=== PATIENT | male | born 1955 | race Caucasian/White ===

== ENCOUNTER → 2016-11-16 | Outpatient (CLI) | payer OTHER ==
[~2016-11-16] MED LIST: ALPR.5T; ALPR.5T PO; AMD200T; AMIT100T2 PO; AMT50T; ASP81CT PO; CLPD75T PO; CRV25T PO; CYCL10TA9 PO; DIGO125T PO; DILANTIN; FISH1CAP15 PO; HYDR-3714 PO; ISM30TCR; ISOS30TA3 PO; LISI40TA; LISI5TAB14; LOSA100T16 PO; LOSA100T7 PO; MTP25TSR; NIAC1TBM5; OMG1KC; OXYC10TA63 PO; PHEN-633 PO; PHN100C; PNT40TEC PO; PREVACID; ROSU10TA12 PO; SMV20T; SRTR100T PO
--- OUTSIDE RECORDS SUMMARY | 2016-11-16 10:31 | XMS REPORT | Continuity of Care Document ---
Author Author [facility] Organization [facility] Address Unknown Phone Unavailable Support Name Relationship Address Phone MARIEL BOLDEN MD Caregiver [address] [place] [address] TIFFANY HUANG MD Caregiver [address] [place] [address] MAGNO PRADO Next Of Kin [address] [place] [address] Insurance Providers Payer Name Policy Number Subscriber Name Relationship [facility] [id number] Justin Prado 18 Self / Same As Patient Advance Directives Directive Response Recorded Date/Time Advance Directives No 10/03/14 9:29am Health Care Power of Incident Commander No 10/03/14 9:29am Organ Donor No 10/03/14 9:29am Resuscitation Status Full Code 10/03/14 9:29am Problems No known problems or medical conditions. Medications Medication Dose Route Sig Days/Qty Instructions Order Date Discontinued Date Status Clopidogrel Bisulfate 75 Mg PO BEDTIME 05/09/07 Active Simvastatin 05/09/07 01/28/09 Discontinued Phenytoin Sodium 05/09/07 02/22/08 Discontinued Metoprolol Succinate 05/09/07 02/22/08 Discontinued Lisinopril 05/09/07 01/28/09 Discontinued Isosorbide Mononitrate 05/09/07 10/02/13 Discontinued Aspirin 81 Mg PO BEDTIME 05/09/07 10/03/14 Discontinued Amiodarone HCl 05/09/07 08/07/12 Discontinued Amitriptyline HCl 05/09/07 08/07/12 Discontinued Alprazolam 05/09/07 01/28/09 Discontinued [Dilantin] 02/22/08 01/28/09 Discontinued Carvedilol 25 Mg PO TWICE A DAY 02/22/08 Active Phenytoin Sodium 01/28/09 08/07/12 Discontinued Lisinopril 01/28/09 08/07/12 Discontinued [Prevacid 40MG] 01/28/09 08/07/12 Discontinued Sertraline HCl 100 Mg PO DAILY 01/28/09 Active Fish Oil 01/28/09 08/07/12 Discontinued Alprazolam 0.5 Mg PO TWICE A DAY 01/28/09 Active Niacin/Simvastatin 01/28/09 08/07/12 Discontinued Phenytoin Sodium 200 Mg PO TWICE A DAY TAKES 2 (100MG) CAPSULES TWICE DAILY 08/07/12 Active Amitriptyline HCl (Elavil) 100 Mg PO BEDTIME 08/07/12 Active Fish Oil/Dha/Epa 1,200 Mg PO TWICE A DAY 08/07/12 Active Rosuvastatin Calcium 10 Mg PO BEDTIME 08/07/12 Active Losartan Potassium 100 Mg PO DAILY 08/07/12 09/23/13 Discontinued Cyclobenzaprine HCl (Flexeril) 10 Mg PO THREE TIMES A DAY PRN MUSCLE SPASMS 08/07/12 Active Pantoprazole Sodium 40 Mg PO DAILY 08/07/12 Active Digoxin (Lanoxin) 125 Mcg PO DAILY 08/07/12 Active Losartan Potassium 100 Mg PO DAILY 09/23/13 Active Oxycodone Hcl 10 Mg PO TWICE A DAY PRN PAIN NEEDED FOR PAIN 10/03/14 Discontinued Isosorbide Mononitrate (Imdur) 30 Mg PO DAILY 10/02/13 Active Aspirin 81 Mg PO BEDTIME 10/03/14 Active Acetaminophen/Hydrocodone Bitart 1-2 Tab PO EVERY 6 HOURS PRN PAIN Active Social History Social History Problem Response Recorded Date/Time Recent Foreign Travel No 10/03/2014 9:31am Smoking Status Former Smoker 10/03/2014 9:29am Query Response Start Date Stop Date Smoking Status Former Smoker 10/03/1995 Hospital Discharge Instructions No hospital discharge instructions. Plan of Care No plan of care. Functional Status Query Response Date Recorded Comprehension Ability Understands Concepts October 04, 2014 9:43am Allergies, Adverse Reactions, Alerts Allergen Type Severity Reaction Status Last Updated Clindamycin Allergy Unknown Active 05/09/07 Immunizations Name Given Type Date of Pneumonia Vaccine 10/02/07 Historical Date of Influenza Vaccine 08/02/14 Historical Vital Signs Acute Vital Signs Vital Response Date/Time Temperature (Fahrenheit) 97.5 degrees F (97.6 - 99.5) Temperature (Calculated Celsius) 36.84633 degrees C (36.4 - 37.5) Temperature Source Tympanic Pulse Rate (adult) 68 bpm (60 - 90) Respiratory Rate 20 bpm (12 - 24) O2 Sat by Pulse Oximetry 97 % (88 - 100) Blood Pressure 110/69 mm Hg Pain Pain Intensity 0 Height (Feet) 5 feet Height (Inches) 7.00 inches Height (Calculated Centimeters) 170.363429 cm Weight (Pounds) 174 pounds Weight (Calculated Grams) 74124.073 gm Weight (Calculated Kilograms) 78.920886 kilograms Calculated BMI 27.25 Results Laboratory Results Test Name Result Units Flags Reference Collection Date/Time Result Date/ Time Comments White Blood Count 10.2 10^3/uL 4.3-11.0 10/03/2014 9:35am 10/03/2014 9: 45am Red Blood Count 4.75 10^6/uL 4.35-5.85 10/03/2014 9:35am 10/03/2014 9: 45am Hemoglobin 15.1 G/DL 13.3-17.7 10/03/2014 9:35am 10/03/2014 9:45am Hematocrit 44 % 40-54 10/03/2014 9:35am 10/03/2014 9:45am Mean Corpuscular Volume 92 FL 80-99 10/03/2014 9:35am 10/03/2014 9: 45am Mean Corpuscular Hemoglobin 32 PG 25-34 10/03/2014 9:35am 10/03/2014 9: 45am Mean Corpuscular Hemoglobin Concent 35 G/DL 32-36 10/03/2014 9:35am 09/2014 9:45am Red Cell Distribution Width 12.7 % 10.0-14.5 10/03/2014 9:35am 2013 9:45am Platelet Count 315 10^3/uL 130-400 10/03/2014 9:35am 10/03/2014 9:45am Mean Platelet Volume 8.5 FL 7.4-10.4 10/03/2014 9:35am 10/03/2014 9: 45am Neutrophils (%) (Auto) 63 % 42-75 10/03/2014 9:35am 10/03/2014 9:45am Lymphocytes (%) (Auto) 26 % 12-44 10/03/2014 9:35am 10/03/2014 9:45am Monocytes (%) (Auto) 9 % 0-12 10/03/2014 9:35am 10/03/2014 9:45am Eosinophils (%) (Auto) 2 % 0-10 10/03/2014 9:35am 10/03/2014 9:45am Basophils (%) (Auto) 1 % 0-10 10/03/2014 9:35am 10/03/2014 9:45am Neutrophils # (Auto) 6.4 X 10^3 1.8-7.8 10/03/2014 9:35am 10/03/2014 9: 45am Lymphocytes # (Auto) 2.7 X 10^3 1.0-4.0 10/03/2014 9:35am 10/03/2014 9: 45am Monocytes # (Auto) 0.9 X 10^3 0.0-1.0 10/03/2014 9:35am 10/03/2014 9: 45am Eosinophils # (Auto) 0.2 10^3/uL 0.0-0.3 10/03/2014 9:35am 10/03/2014 9 :45am Basophils # (Auto) 0.1 10^3/uL 0.0-0.1 10/03/2014 9:35am 10/03/2014 9: 45am Prothrombin Time 13.3 SEC 12.2-14.7 10/03/2014 9:35am 10/03/2014 9: 56am INR Comment 1.0 0.8-1.4 10/03/2014 9:35am 10/03/2014 9:56am INTERPRETIVE DATA SUGGESTED THERAPEUTIC RANGE FOR INR'S: VENOUS THROMBOSIS, PULMONARY EMBOLISM, OR PREVENTION OF SYSTEMIC EMBOLISM (EG. IN ATRIAL FIBRILLATION): 2.0 - 3.0 MECHANICAL PROSTHETIC HEART VALVES: 2.5 - 3.5* *NOTE: INR'S UP TO 4.5 MAY BE NECESSARY IN SELECTED GROUPS OF HIGH RISK PATIENTS. [employer] PH[employer]ANS CONSENSUS CONFERENCE ON ANTITHROMBOTIC THERAPY (2000). Activated Partial Thromboplast Time 36 SEC H 24-35 10/03/2014 1:30pm 09/2014 2:01pm Sodium Level 139 MMOL/L 135-145 10/03/2014 9:35am 10/03/2014 10:02am Potassium Level 4.1 MMOL/L 3.6-5.0 10/03/2014 9:35am 10/03/2014 10: 02am Chloride Level 107 MMOL/L 98-107 10/03/2014 9:35am 10/03/2014 10:02am Carbon Dioxide Level 22 MMOL/L 21-32 10/03/2014 9:35am 10/03/2014 10: 02am Blood Urea Nitrogen 12 MG/DL 7-18 10/03/2014 9:35am 10/03/2014 10:02am Creatinine 0.68 MG/DL 0.60-1.30 10/03/2014 9:35am 10/03/2014 10:02am BUN/Creatinine Ratio 18 10/03/2014 9:35am 10/03/2014 10:02am Estimat Glomerular Filtration Rate > 60 10/03/2014 9:35am 2013 10:02am GFR INTERPRETIVE DATA UNITS FOR ESTIMATED GFR (eGFR): mL/min/1.73 M2 REFERENCE RANGE FOR ESTIMATED GFR (eGFR) eGFR NORMAL eGFR >60 MODERATELY DECREASED eGFR 30-59 SEVERLY DECREASED eGFR 15-29 KIDNEY FAILURE <15 (OR DIALYSIS) Glucose Level 111 MG/DL H 70-105 10/03/2014 9:35am 10/03/2014 10:02am Calcium Level 9.9 MG/DL 8.5-10.1 10/03/2014 9:35am 10/03/2014 10:02am Total Bilirubin 0.3 MG/DL 0.1-1.0 10/03/2014 9:35am 10/03/2014 10:02am Alkaline Phosphatase 103 U/L 40-136 10/03/2014 9:35am 10/03/2014 10: 02am Aspartate Amino Transf (AST/SGOT) 14 U/L 5-34 10/03/2014 9:35am 2013 10:02am Alanine Aminotransferase (ALT/SGPT) 10 U/L 0-55 10/03/2014 9:35am 10/03 10:02am Total Protein 7.6 G/DL 6.4-8.2 10/03/2014 9:35am 10/03/2014 10:02am Albumin 4.6 G/DL H 3.2-4.5 10/03/2014 9:35am 10/03/2014 10:02am Triglycerides Level 172 MG/DL H <150 10/03/2014 9:35am 10/03/2014 10: 02am Cholesterol Level 155 MG/DL < 200 10/03/2014 9:35am 10/03/2014 10:02am HDL Cholesterol 45 MG/DL 40-60 10/03/2014 9:35am 10/03/2014 10:02am LDL Cholesterol Direct 52 MG/DL 1-129 10/03/2014 9:35am 10/03/2014 10: 02am VLDL Cholesterol 34 MG/DL 5-40 10/03/2014 9:35am 10/03/2014 10:02am Procedures Procedure Status Date Provider(s) Tracing only of electrocardiogram completed 10/03/14 TIFFANY HUANG MD Encounters Encounter Location Date/Time Departed [facility] 10/03/14 8:54am
--- NOTE | 2016-11-17 09:05 | ECHOCARDIOGRAPHY REPORT ---
PROCEDURE PHYSICIAN: TIFFANY HUANG DATE OF PROCEDURE: 11/16/2016 TWO DIMENSIONAL ECHOCARDIOGRAM REPORT PRIMARY PHYSICIAN: OTHER PHYSICIAN: REFERRING PHYSICIAN: Dr. Faria ORDERING PHYSICIAN: INDICATION FOR THE PROCEDURE: Congestive heart failure. MEASUREMENTS DERIVED VALUES LV DIAMETER (LAX) NORMALS NORMALS Diastolic 6.2 (3.6-5.2) Eject. Fract. 35 to 40% (60%+/-6%) Systolic (2.3-3.9) Diastolic Vol. % Shortening (0.22-0.42) Systolic Vol. Aortic Root IVS THICKNESS Diastolic 0.8 (0.6-1.1) LVPW THICKNESS Diastolic 0.8 (0.6-1.1) LA DIAMETER Systolic 3.3 (2.1-3.7) FINDINGS: 1. Technical quality is good. 2. The left ventricle is dilated with diffuse left ventricular hypokinesia more pronounced at the lateral wall. Systolic function is reduced. Estimated ejection fraction 35 to 40%. Improvement compared to the study of 2014. 3. The left atrium is mildly dilated. No clot or thrombus were seen within the left atrium. 4. The right atrium and right ventricle are prominent. No clot or thrombus were seen within the right side. 5. Mitral valve is normal in morphology with mild mitral regurgitation noted by color Doppler flow. No mitral valve prolapse. No mitral valve stenosis. 6. Aortic valve is trileaflet with normal opening and closing pattern. No significant aortic stenosis or regurgitation was seen. 7. Tricuspid valve is normal in morphology with mild tricuspid regurgitation noted by color Doppler flow. Doppler across tricuspid valve estimated pulmonary artery pressure of 16+ right atrial pressure. 8. Pulmonic valve is functioning normally. 9. No pericardial effusion. IN CONCLUSION: 1. Prominent left ventricle with diffuse left ventricular hypokinesia more pronounced at the lateral wall. Systolic function is reduced. Estimated ejection fraction 35 to 40%, improvement compared to the study of 2014. 2. Mildly dilated left atrium. 3. Mild mitral and tricuspid regurgitation. 4. Estimated pulmonary artery pressure of 25 mmHg. Job ID: [id number] Dictated Date: 11/16/2016 17:31:46 Condenser Setter Date: 11/17/2016 09:03:09 / arlene
== END ==
LOC: CARD 10:27
PROVIDERS: ATTEND Physician Assistant
DX: I11.0 Hypertensive heart disease with heart failure (principal); I50.22 Chronic systolic (congestive) heart failure; I25.10 Atherosclerotic heart disease of native coronary artery without angina pectoris
CPT/HCPCS: 93306

== ENCOUNTER → 2016-11-21 | Outpatient (CLI) | payer OTHER ==
[~2016-11-21] MED LIST changes: +CATHETER FLUSH 10 ML SYR IV PRN; +REGADENOSON 0.4 MG/5 ML SYR (LEXISCAN) IV ONE
--- OUTSIDE RECORDS SUMMARY | 2016-11-21 07:20 | XMS REPORT | Continuity of Care Document ---
Author Author [facility] Organization [facility] Address Unknown Phone Unavailable Support Name Relationship Address Phone MARIEL BOLDEN MD Caregiver [address] [place] [address] TIFFANY HUANG MD Caregiver [address] [place] [address] MAGNO PRADO Next Of Kin [address] [place] [address] Insurance Providers Payer Name Policy Number Subscriber Name Relationship [facility] [id number] Justin Prado 18 Self / Same As Patient Advance Directives Directive Response Recorded Date/Time Advance Directives No 10/03/14 9:29am Health Care Power of Drier Operator Head No 10/03/14 9:29am Organ Donor No 10/03/14 [...] F (97.6 - 99.5) Temperature (Calculated Celsius) 36.75092 degrees C (36.4 - 37.5) Temperature Source Tympanic Pulse Rate (adult) 68 bpm (60 - 90) Respiratory Rate 20 bpm (12 - 24) O2 Sat by Pulse Oximetry 97 % (88 - 100) Blood Pressure 110/69 mm Hg Pain Pain Intensity 0 Height (Feet) 5 feet Height (Inches) 7.00 inches Height (Calculated Centimeters) 170.494771 cm Weight (Pounds) 174 pounds Weight (Calculated Grams) 22884.073 gm Weight (Calculated Kilograms) 78.063998 kilograms Calculated BMI 27.25 Results Laboratory Results [...] SELECTED GROUPS OF HIGH RISK PATIENTS. [employer] CONSENSUS CONFERENCE ON [...] Location Date/Time Departed Surgical Day Care [facility] 10/03/14 8:54am
[2016-11-21 09:11] VITALS: BP 148/100
--- NOTE | 2016-11-22 09:39 | STRESS TEST ---
PROCEDURE PHYSICIAN: TIFFANY HUANG LEXISCAN MYOVIEW STRESS TEST REPORT DATE OF PROCEDURE: 11/21/2016 INDICATION FOR THE PROCEDURE: Coronary artery disease. Baseline heart rate is 75, baseline blood pressure: 148/100. Baseline EKG: Sinus rhythm with no ischemic changes. SUMMARY: The patient was injected with 10.51 mCi of technetium 99 Myoview and the resting images were obtained. Then the patient received 0.4 mg of Lexiscan followed by 33 mCi of technetium 99 Myoview. Throughout the test, there were no EKG changes. The resting and stress images were reviewed and compared in the short axis, horizontal long axis, and vertical long axis views. Review of the images showed fixed defect involving the mid to apical anterior wall, anterolateral wall and inferolateral wall, with mild johanny-infarct ischemia. SSS is 21, SDS 3, TID value 1.01. On the gated images, the left ventricle is dilated with diffuse left ventricular hypokinesia. Calculated ejection fraction 24%. CONCLUSION: 1. The patient tolerated Lexiscan well. 2. Total infarction of the mid to apical anterior wall, anterolateral wall and inferolateral wall with small area of johanny-infarct ischemia. 3. Dilated left ventricle with diffuse left ventricular hypokinesia. Calculated ejection fraction 24% Job ID: [id number] Dictated Date: 11/22/2016 08:03:04 Bronze Plater Date: 11/22/2016 09:36:35 / [email or web address]
== END ==
LOC: CARD 07:16
PROVIDERS: ATTEND Physician Assistant
DX: I50.22 Chronic systolic (congestive) heart failure (principal); I25.10 Atherosclerotic heart disease of native coronary artery without angina pectoris; I11.0 Hypertensive heart disease with heart failure
CPT/HCPCS: 78452; 93017

== ENCOUNTER 2017-04-19 06:39 | Day surgery (SDC) | payer OTHER ==
[2017-04-19] VITALS (13 sets, daily range): BP systolic 114–141; BP diastolic 65–97
[~2017-04-19] VITALS: Ht 170.2 cm; Wt 72.1 kg
[~2017-04-19 06:39] MED LIST changes: -CATHETER FLUSH 10 ML SYR IV PRN; -REGADENOSON 0.4 MG/5 ML SYR (LEXISCAN) IV ONE
--- OUTSIDE RECORDS SUMMARY | 2017-04-19 06:42 | XMS REPORT | Continuity of Care Document ---
Author Author [facility] Organization [facility] Address Unknown Phone Unavailable Allergies Active Description Code Type Severity Reaction Onset Reported/Identified Relationship to Patient Clinical Status Yes clindamycin [id number] Drug Allergy Unknown N/A 05/09/2007 Medications Problems Date Dx Coded Attending Type Code Diagnosis Diagnosed By 02/24/2010 Ot 272.4 02/24/2010 Ot 401.9 02/24/2010 Ot 412 02/24/2010 Ot 414.00 02/24/2010 Ot 414.8 02/24/2010 Ot 428.0 02/24/2010 Ot 996.72 02/24/2010 Ot V45.82 10/03/2013 TIFFANY HUANG MD Ot 272.4 10/03/2013 TIFFANY HUANG MD Ot 401.9 10/03/2013 TIFFANY HUANG MD Ot 414.01 10/03/2013 TIFFANY HUANG MD Ot 414.8 10/03/2013 TIFFANY HUANG MD Ot 428.0 10/03/2013 TIFFANY HUANG MD Ot 428.22 10/03/2013 TIFFANY HUANG MD Ot 794.30 10/03/2013 TIFFANY HUANG MD Ot V45.82 10/04/2014 TIFFANY HUANG MD Ot 272.4 10/04/2014 TIFFANY HUANG MD Ot 401.9 10/04/2014 TIFFANY HUANG MD Ot 414.01 10/04/2014 TIFFANY HUANG MD Ot 414.2 10/04/2014 TIFFANY HUANG MD Ot 414.8 10/04/2014 TIFFANY HUANG MD Ot 427.1 10/04/2014 TIFFANY HUANG MD Ot 428.0 10/04/2014 TIFFANY HUANG MD Ot 428.22 10/04/2014 TIFFANY HUANG MD Ot V45.02 10/04/2014 TIFFANY HUANG MD Ot V45.82 10/04/2014 REINA ANDER, TIFFANY Drake Ot V58.69 06/17/2015 Ot 397.0 06/17/2015 Ot 410.90 06/17/2015 Ot 414.01 06/17/2015 Ot 424.0 06/17/2015 Ot 429.3 06/17/2015 Ot 272.4 06/17/2015 Ot 401.9 06/17/2015 Ot 412 06/17/2015 Ot 414.00 06/17/2015 Ot 414.00 06/17/2015 Ot 428.0 06/17/2015 Ot 786.50 06/17/2015 Ot 397.0 06/17/2015 Ot 414.00 06/17/2015 Ot 424.0 06/17/2015 Ot 428.0 06/17/2015 Ot 786.50 06/17/2015 Ot 397.0 06/17/2015 Ot 414.00 06/17/2015 Ot 424.0 06/17/2015 Ot 428.0 06/17/2015 Ot 414.00 06/17/2015 Ot 428.0 06/17/2015 REINA ANDRE, TIFFANY Drake Ot 272.4 06/17/2015 REINA ANDRE, TIFFANY Drake Ot 397.0 06/17/2015 REINA ANDRE, TIFFANY Drake Ot 401.9 06/17/2015 REINA ANDRE, TIFFANY Drake Ot 414.00 06/17/2015 REINA ANDRE, TIFFANY Drake Ot 424.0 06/17/2015 REINA ANDRE, TIFFANY Drake Ot 427.0 06/17/2015 REINA ANDRE, TIFFANY Drake Ot 428.0 06/17/2015 REINA ANDRE, TIFFANY Drake Ot 272.4 06/17/2015 REINA ANDRE, TIFFANY Drake Ot 401.9 06/17/2015 REINA ANDRE, TIFFANY Drake Ot 414.00 06/17/2015 REINA ANDRE, TIFFANY Drake Ot 427.0 06/17/2015 REINA ANDRE, TIFFANY Drake Ot 428.0 06/17/2015 REINA ANDRE, TIFFANY Drake Ot 272.4 06/17/2015 REINA ANDRE, TIFFANY Drake Ot 397.0 06/17/2015 REINA ANDRE, TIFFANY Drake Ot 401.9 06/17/2015 REINA ANDRE, TIFFANY Drake Ot 414.00 06/17/2015 REINA ANDRE, TIFFANY Drake Ot 424.0 06/17/2015 TIFFANY HUANG MD Ot 428.0 07/01/2015 YOLI CASTILLO Ot 272.4 07/01/2015 YOLI CASTILLO Ot 401.9 07/01/2015 YOLI CASTILLO Ot 414.00 07/01/2015 YOLI CASTILLO Ot 428.0 11/16/2016 YOLI CASITLLO Ot I11.0 HYPERTENSIVE HEART DISEASE WITH HEART FA 11/16/2016 YOLI CASTILLO Ot I25.10 ATHSCL HEART DISEASE OF [place] CORONARY 11/16/2016 YOLI CASTILLO Ot I50.22 CHRONIC SYSTOLIC (CONGESTIVE) HEART FAIL 11/18/2016 YOLI CASTILLO Ot I11.0 HYPERTENSIVE HEART DISEASE WITH HEART FA 11/18/2016 YOLI CASTILLO Ot I25.10 ATHSCL HEART DISEASE OF [place] CORONARY 11/18/2016 YOLI CASTILLO Ot I50.22 CHRONIC SYSTOLIC (CONGESTIVE) HEART FAIL 11/22/2016 YOLI CASTILLO Ot I11.0 HYPERTENSIVE HEART DISEASE WITH HEART FA 11/22/2016 YOLI CASTILLO Ot I25.10 ATHSCL HEART DISEASE OF [place] CORONARY 11/22/2016 YOLI CASTILLO Ot I50.22 CHRONIC SYSTOLIC (CONGESTIVE) HEART FAIL Procedures Results Encounters ACCT No. Visit Date/Time Discharge Status Pt. Type Provider Facility Loc./Unit Complaint [id number] 06/17/2015 10:54:00 2014 23:59:59 CLS Outpatient YOLI CASTILLO [facility] CARD [id number] 10/03/2014 08:54:00 2013 11:15:00 DIS Outpatient TIFFANY HUANG MD [facility] CATH [id number] 07/17/2014 09:33:00 2013 23:59:59 CLS Outpatient TIFFANY HUANG MD [facility] CARD [id number] 10/02/2013 08:05:00 2012 10:00:00 DIS Outpatient TIFFANY HUANG MD [facility] [id number] 09/24/2013 10:27:00 2012 23:59:59 CLS Outpatient TIFFANY HUANG MD [facility] RAD [id number] 09/23/2013 13:54:00 2012 23:59:59 CLS Outpatient TIFFANY HUANG MD [facility] [id number] 04/19/2017 09:00:00 PEN Preadmit TIFFANY HUANG MD [facility] NANCY,CHF [id number] 11/21/2016 07:16:00 ACT Outpatient YOLI HERNANDEZ [facility] CARD CHRONIC SYSTOLIC CONGESTIVE HEART FAILURE [id number] 11/16/2016 10:27:00 ACT Outpatient YOLI HERNANDEZ [facility] CARD CHRONIC SYSTOLIC HEART FAILURE [id number] 06/17/2015 10:54:00 Document Registration [id number] 06/17/2015 10:54:00 Document Registration [id number] 06/17/2015 10:54:00 Document Registration [id number] 08/07/2012 10:50:00 Document Registration [id number] 06/01/2011 07:30:00 Document Registration [id number] 05/27/2011 08:22:00 Document Registration [id number] 02/24/2010 08:09:00 Document Registration [id number] 02/10/2010 08:41:00 Document Registration
[2017-04-19] MEDS ORDERED: HEParin (CATH LAB) 1,000 ML IV ONE (06:51)
[2017-04-19] MEDS ORDERED: NS IV 1000 ML 1,000 ML ONE (06:51)
[2017-04-19] MEDS ORDERED: ceFAZolin 1,000 MG (ANCEF) VIAL ONE (06:51)
[2017-04-19] MEDS ORDERED: BACITRACIN INJECTION 50,000 UNIT, SODIUM CHLORIDE 0.9% IRRIGATIO 500 ML IR STA ×2 (06:52)
[2017-04-19] MEDS ORDERED: NS IV 1000 ML 1,000 ML IV SCH ×2 (07:15→09:34)
[2017-04-19] MEDS ORDERED: NS (IVPB) 50 ML ONE (07:20)
[2017-04-19 07:27] LABS: MEAN PLATELET VOLUME 8.8 FL (7.4-10.4); RED BLOOD COUNT 4.55 10^6/uL (4.35-5.85); RED CELL DISTRIBUTION WIDTH 12.8 % (10.0-14.5); WHITE BLOOD COUNT 8.9 10^3/uL (4.3-11.0)
[2017-04-19 07:27] LABS: BILIRUBIN,URINE NEGATIVE (NEGATIVE); KETONES,URINE NEGATIVE (NEGATIVE); LEUKOCYTE ESTERASE ,URINE 2+ (NEGATIVE); NITRITE,URINE NEGATIVE (NEGATIVE); PH,URINE 7 (5-9); PROTEIN,URINE NEGATIVE (NEGATIVE); UROBILINOGEN,URINE NORMAL (NORMAL)
[2017-04-19 07:31] LABS: PROTHROMBIN TIME PATIENT 13.2 SEC (12.2-14.7)
[2017-04-19 07:36] LABS: SQUAMOUS EPITHELIAL CELL,UR RARE /HPF; WBC,URINE 0-2 /HPF
[2017-04-19] MEDS ORDERED: SIMV40TA4 PO (07:40)
[2017-04-19] MEDS ORDERED: PANT40TA3 PO (07:40)
[2017-04-19 07:44] LABS: ALANINE AMINOTRANSFERASE 15 U/L (0-55); ALBUMIN 4.4 GM/DL (3.2-4.5); ANION GAP 9 MMOL/L (5-14); ASPARTATE AMINO TRANSFERASE 17 U/L (5-34); BILIRUBIN,TOTAL 0.2 MG/DL (0.1-1.0); BLOOD UREA NITROGEN 10 MG/DL (7-18); BUN/CREATININE RATIO 13; CALCIUM 9.6 MG/DL (8.5-10.1); CARBON DIOXIDE 28 MMOL/L (21-32); CHLORIDE 103 MMOL/L (98-107); CHOLESTEROL 167 MG/DL (< 200); CREATININE SERUM 0.77 MG/DL (0.60-1.30); DIRECT LDL 54 MG/DL (1-129); GFR ESTIMATED > 60; GLUCOSE 121 MG/DL (70-105); POTASSIUM 4.2 MMOL/L (3.6-5.0); SODIUM 140 MMOL/L (135-145); TOTAL PROTEIN 7.5 GM/DL (6.4-8.2); TRIGLYCERIDES 244 MG/DL (<150); VLDL CHOLESTEROL 49 MG/DL (5-40)
--- NOTE | 2017-04-19 07:45 | Diagnostic Imaging Report ---
INDICATION: Preoperative chest. No complaints. ICD generator change. FINDINGS: Portable view of the chest demonstrates heart size and vascularity to be normal. Lungs are clear. There are no pleural effusions. The ICD appears to be unchanged from the previous exam. IMPRESSION: There are no acute findings. Dictated by: Dictated on workstation # [id number]
[2017-04-19] MEDS ORDERED: MIDAZOLAM 5 MG/5 ML (VERSED) VIAL ONE ×2 (07:59→08:39)
[2017-04-19] MEDS ORDERED: fentaNYL INJECTION 100 MCG/2 ML AMP ONE ×2 (07:59→08:39)
--- NOTE | 2017-04-19 08:00 | Cardiac Procedure Note-CS/ASA ---
Pre-Procedure Note Pre-Op Procedure Note H&P Reviewed The H&P was reviewed, patient examined and no changes noted. Date H&P Reviewed: Apr 19, 2017 Time H&P Reviewed: 08:00 Conscious Sedation Pre-Proced Time Reviewed: 08:00 ASA Class: 3 Airway Mallampati Classification: ([place] appropriate class) I. II. III, IV Lungs Heart ASA score ASA 1: a normal healthy patient ASA 2: a patient with a mild systemic disease (mid diabetes, controlled hypertension, obesity x ASA 3: a patient with a severe systemic disease that limits activity (angina , COPD, prior Myocardial infarction) ASA 4: a patient with an incapacitating disease that is a constant threat to life (CHF, renal failure) ASA 5: a moribund patient not expected to survive 24 hrs. (ruptured aneurysm) ASA 6: a declared brain patient whose organs are being harvested. For emergent operations, add the letter E after the classification Grade 3 Sedation Plan: Analgesia, Amnesia, Plan communicated to team members, Discussed options with patient/fam, Discussed risks with patient/fam Note The patient is an appropriate candidate to undergo the planned procedure, sedation, and anesthesia. The patient immediately re-assessed prior to indication. TIFFANY HUANG MD Apr 19, 2017 08:00
[2017-04-19] MEDS ORDERED: diphenhydrAMINE 50 MG/ML INJ (BENADRYL) ONE (08:39)
[2017-04-19] MEDS ORDERED: NEO/POLY/BAC (NEOSPORIN) OINT 15 GM TUBE ONE (09:03)
--- NOTE | 2017-04-19 09:42 | Cardiology Post Procedure Note ---
Post-Procedure Note Physician (s)/Hand Glass Cutter (s) Physician TIFFANY HUANG MD Pre-Procedure Diagnosis Pre-Procedure Diagnosis: CHF Post-Procedure Note Procedure Start Date: Apr 19, 2017 Procedure Start Time: 08:30 Name of Procedure: Dual Chamber Generator Replacement Findings/Procedure Note patient was placed on the cardiac catheterization laboratory, skin was prepped in sterile fashion, conscious sedation achieved, local anesthesia applied, skin pocket was exposed, lead were and released and evaluated. Then I removed the dual-chamber ICD device, and new device was connected to the leads I used Medtronic device with EVERA XT, model number [id number], serial number [id number] , the skin pocket was irrigated with antibiotic solution and then the dual- chamber ICD device was placed in the pocket and the pocket was closed, testing was made and good sensing and capture activity with the right atrial and right ventricular leads. No complications noted. No contrast was used. No radiation Anesthesia Type: Conscious Sedation Estimated blood loss (mL): 20 Contrast Amount: 0 Post-Procedure Diagnosis Post-operative diagnosis: CHF Ventricular Tachycardia CAD HTN TIFFANY HUANG MD Apr 19, 2017 09:42
[2017-04-19] MEDS ORDERED: PATIENT MAY USE OWN MEDS, ALL PO SCH (09:45)
[2017-04-19] MEDS ORDERED: CYCLOBENZAPRINE 10 MG (FLEXERIL) TAB PO PRN (09:45)
[2017-04-19] MEDS: ceFAZolin INJECTION 1,000 MG in NS (IVPB) 50 ML IV SCH ×2 (14:48→22:20)
[2017-04-19] MEDS: HYDROcodone/APAP 5 MG/325 MG (LORTAB) TAB PO PRN ×2 (16:47→23:00)
[2017-04-19] MEDS: OMEGA 3 (FISH OIL) 1000 MG CAP PO SCH (16:48)
[2017-04-19] MEDS: ALPRAZolam 0.5 MG (XANAX) TAB PO SCH (20:54)
[2017-04-19] MEDS ORDERED: AMITRIPTYLINE 100 MG TAB PO SCH (21:00)
[2017-04-19] MEDS ORDERED: CARVEDILOL 25 MG TAB PO SCH (21:00)
[2017-04-19] MEDS ORDERED: ASPIRIN 81 MG CHEW (CHILDREN'S ASA) PO SCH (21:00)
[2017-04-19] MEDS ORDERED: PANTOPRAZOLE 40 MG (PROTONIX) TAB PO SCH (21:00)
[2017-04-19] MEDS ORDERED: SIMvastatin 40 MG (ZOCOR) TAB PO SCH (21:00)
[2017-04-19] MEDS ORDERED: CLOPIDOGREL 75 MG (PLAVIX) TABLET PO SCH (21:00)
[2017-04-19] MEDS ORDERED: PHENYTOIN 100 MG (DILANTIN) CAP PO SCH (21:00)
[2017-04-20] VITALS: BP 118/72
[2017-04-20 04:00] VITALS: BP 122/68
[2017-04-20 04:05] LABS: MEAN PLATELET VOLUME 8.8 FL (7.4-10.4); RED BLOOD COUNT 4.44 10^6/uL (4.35-5.85); RED CELL DISTRIBUTION WIDTH 12.8 % (10.0-14.5); WHITE BLOOD COUNT 10.8 10^3/uL (4.3-11.0)
[2017-04-20 04:24] LABS: ALANINE AMINOTRANSFERASE 12 U/L (0-55); ALBUMIN 4.1 GM/DL (3.2-4.5); ANION GAP 12 MMOL/L (5-14); ASPARTATE AMINO TRANSFERASE 16 U/L (5-34); BILIRUBIN,TOTAL 0.3 MG/DL (0.1-1.0); BLOOD UREA NITROGEN 10 MG/DL (7-18); BUN/CREATININE RATIO 15; CALCIUM 9.1 MG/DL (8.5-10.1); CARBON DIOXIDE 19 MMOL/L (21-32); CHLORIDE 107 MMOL/L (98-107); CREATININE SERUM 0.66 MG/DL (0.60-1.30); GFR ESTIMATED > 60; GLUCOSE 96 MG/DL (70-105); POTASSIUM 4.2 MMOL/L (3.6-5.0); SODIUM 138 MMOL/L (135-145); TOTAL PROTEIN 6.8 GM/DL (6.4-8.2)
[2017-04-20] MEDS: ceFAZolin INJECTION 1,000 MG in NS (IVPB) 50 ML IV SCH (06:17)
[2017-04-20] MEDS ORDERED: ISOSORBIDE MONONITRATE 30 MG (IMDUR) TAB PO SCH (06:30)
[2017-04-20] MEDS: OMEGA 3 (FISH OIL) 1000 MG CAP PO SCH (07:42)
[2017-04-20] MEDS: ALPRAZolam 0.5 MG (XANAX) TAB PO SCH (07:50)
[2017-04-20 08:08] VITALS: BP 128/85
--- NOTE | 2017-04-20 08:09 | Short Stay Summary ---
History of Present Illness History of Present Illness Reason for visit/HPI 62 years old gentleman with history of ventricular tachycardia, has history of dual-chamber ICD, reached elective replacement indicator, scheduled for generator replacement. Date of Admission April 19, 2017 Date of Discharge April 20, 2017 Time Seen by Provider: 08:06 Attending Physician Tiffany Merino MD Admitting Physician John Faria MD Consult Allergies and Home Medications Allergies Coded Allergies: Clindamycin (Verified Allergy, Unknown, 05/09/07) Home Medications Alprazolam 0.5 Mg Tab, 0.5 MG PO BID, (Reported) Amitriptyline Hcl 100 Mg Tablet, 100 MG PO HS, (Reported) Aspirin 81 Mg Chew, 81 MG PO HS, (Reported) Carvedilol 25 Mg Tablet, 25 MG PO BID, (Reported) Clopidogrel 75 Mg Tablet, 75 MG PO HS, (Reported) Cyclobenzaprine Hcl 10 Mg Tablet, 10 MG PO TID PRN for MUSCLE SPASMS, (Reported) NEEDED FOR MUSCLE SPASMS Digoxin 125 Mcg Tablet, 125 MCG PO DAILY, (Reported) Fish Oil/Dha/Epa 1 Each Capsule, 1,200 MG PO BID, (Reported) Hydrocodone Bit/Acetaminophen 1 Each Tablet, 1-2 TAB PO Q6H PRN for PAIN, ( Reported) MAY TAKE 1-2 (5/325MG) TABLETS Isosorbide Mononitrate 30 Mg Tab.sr.24h, 30 MG PO DAILY, (Reported) Losartan Potassium 100 Mg Tablet, 100 MG PO DAILY, (Reported) Pantoprazole Sodium 40 Mg Tablet.dr, 40 MG PO HS, (Reported) Phenytoin Sodium 100 Mg Cap, 200 MG PO BID, (Reported) TAKES 2 (100MG) CAPSULES TWICE DAILY Sertraline Hcl 100 Mg Tab, 100 MG PO DAILY, (Reported) Simvastatin 40 Mg Tablet, 40 MG PO HS, (Reported) Past Unnyjlg-Xhbejp-Jvmgru Hx Patient Social History Marrital Status: Smoking Status: Former Smoker Type Used: Cigarettes Recent Foreign Travel: No Contact w/other who traveled: No Recent Infectious Disease Expo: No Immunizations Up To Date Date of Pneumonia Vaccine: Oct 02, 2007 Date of Influenza Vaccine: Aug 02, 2014 Surgeries HX Surgeries: Yes (HEMMORRHOIDECTOMY,X2 HERNIAS,LEFT ROTATOR CUFF) Surgeries: Coronary Stent, Pacemaker Respiratory Hx Respiratory Disorders: No Cardiovascular Hx Cardiovascular Disorders: Yes (cad chf) Neurological Hx Neurological Disorders: Yes Neurological Disorders: Seizure Disorder Reproductive System Hx Reproductive Disorders: No Genitourinary Hx Genitourinary Disorders: No Gastrointestinal Hx Gastrointestinal Disorders: Yes (gerd) Gastrointestinal Disorders: Gastroesophageal Reflux, Hemorrhoids Musculoskeletal Hx Musculoskeletal Disorders: Yes (LOWER LUMBAR CRUSHED VERTEBRAE) Endocrine Hx Endocrine Disorders: No HEENT HX ENT Disorders: No Cancer Hx Cancer: No Psychosocial Hx Psychiatric Problems: Yes Blood Transfusions Hx Blood Disorders: No Constitutional: see HPI EENTM: see HPI Respiratory: see HPI Cardiovascular: see HPI Gastrointestinal: see HPI Genitourinary: see HPI Musculoskeletal: see HPI Skin: see HPI Psychiatric/Neurological: No Symptoms Reported, See HPI Physical Exam Vital Signs Vital Sign - Last 12Hours 04/19/17 07:06 Temp 96.5 Pulse 73 Resp 14 B/P (MAP) 141/97 Pulse Ox 99 O2 Delivery Room Air Capillary Refill : General Appearance: No Apparent Distress, WD/WN Eyes: Bilateral Eye EOMI, Bilateral Eye Normal Inspection, Bilateral Eye PERRL HEENT: PERRL/EOMI, TMs Normal, Normal ENT Inspection, Pharynx Normal Neck: Full Range of Motion, Normal Inspection, Non Tender, Supple, Carotid Bruit Respiratory: Chest Non Tender, Lungs Clear, Normal Breath Sounds, No Accessory Muscle Use, No Respiratory Distress Cardiovascular: Regular Rate, Rhythm, No Edema, No Gallop, No JVD, No Murmur, Normal Peripheral Pulses Gastrointestinal: Normal Bowel Sounds, No Organomegaly, No Pulsatile Mass, Non Tender, Soft Back: Normal Inspection, No CVA Tenderness, No Vertebral Tenderness Extremity: Normal Capillary Refill, Normal Inspection, Normal Range of Motion, Non Tender, No Calf Tenderness, No Pedal Edema Neurologic/Psychiatric: Alert, Oriented x3, No Motor/Sensory Deficits, Normal Mood/Affect Skin: Normal Color, Warm/Dry Lymphatic: No Adenopathy Short Stay Diagnosis Discharge Diagnosis-Short Stay Admission Diagnosis: ventricular tachycardia Permanent pacemaker/ICD dual-chamber Coronary artery disease Congestive heart failure, chronic compensated left ventricular systolic dysfunction, ischemic cardiomyopathy Hypertension Hyperlipidemia Final Discharge Diagnosis: ventricular tachycardia Permanent pacemaker/ICD dual-chamber Coronary artery disease Congestive heart failure, chronic compensated left ventricular systolic dysfunction, ischemic cardiomyopathy Hypertension Hyperlipidemia Conclusion Labs Laboratory Tests 04/20/17 03:33: White Blood Count 10.8, Red Blood Count 4.44, Hemoglobin 13.8, Hematocrit 41, Mean Corpuscular Volume 91, Mean Corpuscular Hemoglobin 31, Mean Corpuscular Hemoglobin Concent 34, Red Cell Distribution Width 12.8, Platelet Count 270, Mean Platelet Volume 8.8, Sodium Level 138, Potassium Level 4.2, Chloride Level 107, Carbon Dioxide Level 19L, Anion Gap 12, Blood Urea Nitrogen 10, Creatinine 0.66, Estimat Glomerular Filtration Rate > 60, BUN/Creatinine Ratio 15, Glucose Level 96, Calcium Level 9.1, Total Bilirubin 0.3, Aspartate Amino Transf (AST/ SGOT) 16, Alanine Aminotransferase (ALT/SGPT) 12, Alkaline Phosphatase 77, Total Protein 6.8, Albumin 4.1 Conclusion/Plan patient underwent dual-chamber pacemaker generator replacement, had a Medtronic device placed without any complication. Wound is healing well, recovered well. Planning to discharge home. TIFFANY MERINO MD Apr 20, 2017 08:08
[2017-04-20] MEDS ORDERED: CEFU500T63 PO (08:10)
[2017-04-20] MEDS ORDERED: DIGOXIN 0.125 MG (LANOXIN) TAB PO SCH (09:00)
[2017-04-20] MEDS ORDERED: LOSARTAN 100 MG TAB PO SCH (09:00)
[2017-04-20] MEDS ORDERED: SERTRALINE 100 MG (ZOLOFT) TAB PO SCH (09:00)
--- NOTE | 2017-04-20 12:44 | ICD Generator Change ---
ICD Generator Change Physician (s)/Medical Technical Writer (s) Physician TIFFANY HUANG MD Pre-Procedure Diagnosis Pre-Procedure Diagnosis: CHF Post-Procedure Note Name of Procedure: Dual Chamber Generator Replacement Findings/Procedure Note Post-Procedure Note Physician (s)/Medical Technical Writer (s) Physician TIFFANY HUANG MD patient was placed on the cardiac catheterization laboratory, skin was prepped in sterile fashion, conscious sedation achieved, local anesthesia applied, skin pocket was exposed, lead were and released and evaluated. Then I removed the dual-chamber ICD device, and new device was connected to the leads I used Medtronic device with EVERA XT, model number [id number], serial number [id number] , the skin pocket was irrigated with antibiotic solution and then the dual- chamber ICD device was placed in the pocket and the pocket was closed, testing was made and good sensing and capture activity with the right atrial and right ventricular leads. No complications noted. No contrast was used. No radiation Conclusion Successful ICD generator replacement without complication Anesthesia Type: Conscious Sedation Estimated blood loss (mL): 20 Contrast Amount: 0 Post-Procedure Diagnosis Post-operative diagnosis: CHF Ventricular Tachycardia CAD HTN TIFFANY UHANG MD Apr 20, 2017 12:44
== END 2017-04-20 09:35 ==
LOC: CATH 06:39 → ICU 10:05 → CATH 04-20 09:35
PROVIDERS: ATTEND Internal Medicine Cardiovascular Disease
DX: Z45.010 Encounter for checking and testing of cardiac pacemaker pulse generator [battery] (principal); I47.2 Ventricular tachycardia; I25.10 Atherosclerotic heart disease of native coronary artery without angina pectoris; I10 Essential (primary) hypertension; I50.22 Chronic systolic (congestive) heart failure; I25.5 Ischemic cardiomyopathy; E78.2 Mixed hyperlipidemia; G40.909 Epilepsy, unspecified, not intractable, without status epilepticus; Z95.5 Presence of coronary angioplasty implant and graft; Z79.899 Other long term (current) drug therapy
CPT/HCPCS: 33263; 36415; 71010; 80053; 80061; 81000; 85027; 85610; 85730; 87081; 93005

== ENCOUNTER → 2018-01-18 | Outpatient (CLI) | payer OTHER ==
[~2018-01-18] MED LIST changes: +CEFU500T63 PO; +PANT40TA3 PO; +SIMV40TA4 PO
== END ==
LOC: CARD 08:39
PROVIDERS: ATTEND Internal Medicine Cardiovascular Disease
DX: I25.10 Atherosclerotic heart disease of native coronary artery without angina pectoris (principal); I11.0 Hypertensive heart disease with heart failure; I50.22 Chronic systolic (congestive) heart failure; R07.9 Chest pain, unspecified; E78.2 Mixed hyperlipidemia; R06.00 Dyspnea, unspecified; I34.0 Nonrheumatic mitral (valve) insufficiency
CPT/HCPCS: 93306

== ENCOUNTER → 2019-03-28 | Outpatient (CLI) | payer OTHER | LOC: CARD 12:12 | PROVIDERS: ATTEND Internal Medicine Cardiovascular Disease | DX: I25.10 Atherosclerotic heart disease of native coronary artery without angina pectoris (principal); I50.22 Chronic systolic (congestive) heart failure; R06.09 Other forms of dyspnea; E78.2 Mixed hyperlipidemia; I47.1 Supraventricular tachycardia; I47.2 Ventricular tachycardia; I34.0 Nonrheumatic mitral (valve) insufficiency | CPT/HCPCS: 93306 ==

== ENCOUNTER → 2020-07-14 | Outpatient (CLI) | payer OTHER ==
[~2020-07-14] MED LIST changes: -PANT40TA3 PO; +PANT40TA52 PO; +SIMV40TA25 PO; -SIMV40TA4 PO
--- NOTE | 2020-07-14 10:16 | Diagnostic Imaging Report ---
INDICATION: Left shoulder pain AP, oblique, and transscapular views left shoulder are obtained. There are 3 anchor screws overlying the humeral head. There is no acute fracture or dislocation. There is advanced degenerative change of the glenohumeral joint with severe joint space narrowing and osteophyte formation. There is degenerative change of the AC joint as well. There is minimal distance between the acromion and humeral head, raising the possibility of rotator cuff pathology. IMPRESSION: Extensive chronic changes in left shoulder, no acute fracture or dislocation. Dictated by: Dictated on workstation # [id number]
== END ==
LOC: RAD FS 09:30
PROVIDERS: ATTEND Nurse Practitioner
DX: M19.012 Primary osteoarthritis, left shoulder (principal)
CPT/HCPCS: 73030

== ENCOUNTER → 2020-07-23 | Outpatient (CLI) | payer MEDICARE, OTHER | LOC: CARD 09:00 | PROVIDERS: ATTEND Internal Medicine Cardiovascular Disease | DX: I34.0 Nonrheumatic mitral (valve) insufficiency (principal); I25.10 Atherosclerotic heart disease of native coronary artery without angina pectoris; I11.9 Hypertensive heart disease without heart failure; E78.2 Mixed hyperlipidemia; I47.1 Supraventricular tachycardia; I47.2 Ventricular tachycardia | CPT/HCPCS: 93306 ==

== ENCOUNTER → 2020-07-29 | Outpatient (CLI) | payer MEDICARE, OTHER ==
[~2020-07-29] VITALS: Ht 171 cm; Wt 77.0 kg
[~2020-07-29] MED LIST changes: +CATHETER FLUSH 10 ML SYR IV PRN; +REGADENOSON 0.4 MG/5 ML SYR (LEXISCAN) IV ONE
[2020-07-29 09:32] VITALS: BP 154/103
--- NOTE | 2020-07-29 12:48 | Cardiology Stress Test Report ---
Stress Test Report Date of Procedure/Referring: Date of Procedure: Jul 29, 2020 PCP Tiffany Merino MD Admitting Physician John Faria MD Indications: Congestive heart failure Baseline Heart Rate: 67 Baseline Blood Pressure: Blood Pressure Systolic: 154 Blood Pressure Diastolic: 103 Baseline Vitals Vital Signs Date Time Temp Pulse Resp B/P (MAP) Pulse Ox O2 Delivery O2 Flow Rate FiO2 07/29/20 09:32 69 154/103 (120) 96 Baseline EKG: Baseline EKG: normal sinus rhythm Summary After explaining the procedure to the patient, he signed a consent and then brought to the stress nuclear laboratory. Patient received 0.4 mg Lexiscan for stress test, ECG, heart rate and blood pressure were monitored continuously. Resting and stress dose of radio tracer were injected, imaging was acquired and reviewed in short axis, horizontal long axis and vertical long axis views. TID: 1.17 SSS: 26 SDS: 23 EF: 37 1. Patient tolerated Lexiscan well 2. Fixed defect involving the whole anterior lateral and inferolateral wall with mild reversibility at the mid anterior wall 3. Dilated left ventricle with diffuse left ventricular hypokinesia EF 37 percent TIFFANY MERINO MD Jul 29, 2020 12:48
== END ==
LOC: CARD 08:30
PROVIDERS: ATTEND Internal Medicine Cardiovascular Disease
DX: I25.10 Atherosclerotic heart disease of native coronary artery without angina pectoris (principal); I11.0 Hypertensive heart disease with heart failure; I47.1 Supraventricular tachycardia; I47.2 Ventricular tachycardia; E78.2 Mixed hyperlipidemia; I50.9 Heart failure, unspecified
CPT/HCPCS: 78452; 93017; A9502

== ENCOUNTER → 2021-12-07 | Outpatient (CLI) | payer MEDICARE, OTHER ==
[~2021-12-07] MED LIST changes: -CATHETER FLUSH 10 ML SYR IV PRN; -REGADENOSON 0.4 MG/5 ML SYR (LEXISCAN) IV ONE
== END ==
LOC: CARD 09:30
PROVIDERS: ATTEND Internal Medicine Cardiovascular Disease
DX: I08.0 Rheumatic disorders of both mitral and aortic valves (principal); I11.9 Hypertensive heart disease without heart failure; I25.10 Atherosclerotic heart disease of native coronary artery without angina pectoris
CPT/HCPCS: 93306

== ENCOUNTER → 2022-01-20 | Outpatient (CLI) | payer MEDICARE, OTHER ==
[~2022-01-20] VITALS: Ht 170 cm; Wt 75.0 kg
[~2022-01-20] MED LIST changes: +IOHEXOL 300 MG/ML 50 ML (OMNIPAQUE 300) VIAL IV ONE
--- NOTE | 2022-01-20 12:51 | Diagnostic Imaging Report ---
PROCEDURE: CT right upper extremity with intra-articular contrast. TECHNIQUE: Axial images were obtained through the right upper extremity after articular contrast administration and reformatted into coronal and sagittal oblique planes. Auto Exposure Controls were utilized during the CT exam to meet ALARA standards for radiation dose reduction. Date: January 20, 2022. INDICATION: 67-year-old male, right shoulder pain. Evaluation for rotator cuff tendon tear. COMPARISON: Right shoulder arthrogram January 20, 2022. FINDINGS: There is contrast extension into the subacromial subdeltoid bursa with the full-thickness full-width tear of the supraspinatus tendon. Tendon retraction is at least to the level of the superior humeral head measuring approximately 3.2 cm on coronal image 41. There is a small linear area of full-thickness contrast extension through the infraspinatus which may relate to a tiny full-thickness tendon perforation. The teres minor tendon is intact. There are small interstitial tears of the subscapularis tendon. There is no fatty atrophy of the rotator cuff musculature. There is a small tear of the inferior aspect of the posterior labrum on axial image 40. The labrum appears otherwise intact. There is no identified glenohumeral cartilage defect. There is no visualized intra-articular body or prominent synovitis. There are mild acromioclavicular degenerative changes without undersurface osteophyte. There is no os acromiale. There is no Hill-Sachs deformity. There is no acute fracture. There is no bone lesion. There are degenerative changes of the cervical spine. There is a right lower lobe pulmonary nodule measuring 1.3 cm in size on axial image 81. There is a low-attenuation right thyroid nodule measuring 8 mm in size on axial image 24. Impression: 1. 1.3 cm right lower lobe pulmonary nodule which does raise concern for potential neoplasm. Recommend comparison with earlier prior CT chest imaging if available to assess for possible stability. If stability cannot be documented, PET/CT is recommended for further assessment. 2. Full-thickness, full-width tear of the supraspinatus tendon with tendon retraction to the level of the superior humeral head. Tiny full-thickness tendon perforation of the infraspinatus and partial interstitial tearing of the subscapularis tendon. 3. No fatty muscle atrophy. 4. Mild acromioclavicular degenerative changes without undersurface osteophyte. 5. Very small focal tear of the mid to inferior aspect of the posterior labrum. Additional glenohumeral joint assessment is unremarkable. Faxed to [facility] at 12:44 p.m. by digna. Dictated by: Dictated on workstation # [id number]
--- NOTE | 2022-01-20 12:57 | Diagnostic Imaging Report ---
INDICATION: Right shoulder pain and injury. Patient was brought to the procedure room and placed on the table in the supine position. The skin over the right shoulder was prepped and draped in the usual sterile fashion. A small amount 1% lidocaine was utilized for local anesthesia. A 21-gauge needle was advanced into the right shoulder at the rotator interval. A 15 mm solution of iodinated contrast and normal saline was injected under fluoroscopic observation. Needle was withdrawn and hemostasis was obtained. The patient tolerated the procedure well and was sent to CT for CT arthrography in satisfactory condition. A total of 10 seconds of fluoroscopic time was utilized. IMPRESSION: Successful right shoulder injection of iodinated contrast solution using fluoroscopy. Dictated by: Dictated on workstation # [id number]
== END ==
LOC: RAD 12:00
PROVIDERS: ATTEND Nurse Practitioner
DX: M75.121 Complete rotator cuff tear or rupture of right shoulder, not specified as traumatic (principal); M19.011 Primary osteoarthritis, right shoulder; S43.401A Unspecified sprain of right shoulder joint, initial encounter; R91.1 Solitary pulmonary nodule; X58.XXXA Exposure to other specified factors, initial encounter
CPT/HCPCS: 23350; 73040; 73201

== ENCOUNTER 2022-03-30 05:29 | Outpatient (CLI) | payer MEDICARE, OTHER ==
[~2022-03-30 05:29] MED LIST changes: -IOHEXOL 300 MG/ML 50 ML (OMNIPAQUE 300) VIAL IV ONE
== END 2022-03-31 15:54 | disposition home or self-care (01) ==
LOC: PREOP 05:29
PROVIDERS: ATTEND Orthopaedic Surgery
DX: Z01.818 Encounter for other preprocedural examination (principal)

== ENCOUNTER 2022-04-21 05:39 | Outpatient (CLI) | payer MEDICARE, OTHER ==
[~2022-04-21] VITALS: Ht 170 cm; Wt 71.0 kg
== END 2022-04-22 15:20 | disposition home or self-care (01) ==
LOC: PREOP 05:39
PROVIDERS: ATTEND Orthopaedic Surgery
DX: Z01.818 Encounter for other preprocedural examination (principal)

== ENCOUNTER 2022-04-27 07:22 | Day surgery (SDC) | payer MEDICARE, OTHER ==
--- NOTE | 2022-04-20 21:51 | HISTORY AND PHYSICAL ---
DATE OF SERVICE: ADMISSION HISTORY AND PHYSICAL This will be for outpatient surgery on 04/27/2022 for right rotator cuff repair. HISTORY OF PRESENT ILLNESS: The patient is a 67-year-old right hand dominant gentleman who injured his right shoulder in December when he was throwing a heavy chain, he felt and heard a pop. He ultimately underwent a CT arthrogram, which showed evidence of a supraspinatus tear. He reports functional impairment. Because of the shoulder, he has tried rest and activity modifications without relief. Due to functional impairment, the patient has elected to proceed with surgical intervention. REVIEW OF SYSTEMS: No chest pain, no shortness of breath, no dysuria. PAST MEDICAL HISTORY: Hyperlipidemia, hypertension, cardiac pacemaker for tachycardia, left rotator cuff tear and seizures. PAST SURGICAL HISTORY: Pacemaker placement, stent placement, herniorrhaphy, left rotator cuff repair, appendectomy, hemorrhoidectomy. FAMILY HISTORY: Noncontributory. PRIMARY CARE PROVIDER: Dr. Faria. MEDICATIONS: Aspirin, Xanax, amitriptyline, Anucort, betamethasone, bisacodyl, cyclobenzaprine, digoxin, fish oil, ibuprofen, isosorbide, losartan, pantoprazole, phenytoin, Plavix and sertraline. ALLERGIES: CLINDAMYCIN AND NIACIN. SOCIAL HISTORY: The patient denies alcohol and tobacco use. PHYSICAL EXAMINATION: GENERAL: The patient is well-developed, well-nourished, in no acute distress. HEENT: Normocephalic, atraumatic. Pupils are equal, round and reactive to light. Oropharynx is clear. NECK: Supple, no lymphadenopathy. LUNGS: Clear to auscultation bilaterally. HEART: Regular rate and rhythm. ABDOMEN: Soft, nontender, nondistended. EXTREMITIES: Right shoulder demonstrates weakness with abduction and external rotation. He has symmetric forward elevation, external and internal rotation actively. He has a positive Neer's and positive Hawkin sign. Sensation is intact throughout his right upper extremity. IMPRESSION: Right full-thickness rotator cuff tear. PLAN: Right shoulder arthroscopy with open rotator cuff repair. The risks, benefits, options, ramifications and recovery have been discussed at length with the patient. He understands and wishes to proceed. Job ID: [id number] DocumentID: [id number] Dictated Date: 04/19/2022 12:15:39 Field Sales Engineer Date: 04/19/2022 12:58:08 Dictated By: FLACA PIRES MD
[2022-04-27] VITALS (11 sets, daily range): BP systolic 119–136; BP diastolic 84–98
[~2022-04-27] VITALS: Ht 170 cm; Wt 71.0 kg
[2022-04-27] MEDS ORDERED: ceFAZolin 2 GM IV Premixed 50 ML IV ONE (07:45)
[2022-04-27] MEDS: LACTATED RINGERS 1,000 ML IV PRN ×2 (08:00→11:00)
[2022-04-27] MEDS ORDERED: MIDAZOLAM 2 MG/2 ML (VERSED) VIAL ONE ×2 (08:00→10:53)
[2022-04-27] MEDS ORDERED: oxyCODONE/APAP 5/325MG (PERCOCET 5) TABLET PO PRN (10:45)
--- NOTE | 2022-04-27 10:48 | Progress Note-Pre Operative ---
Pre-Operative Progress Note H&P Reviewed The H&P was reviewed, patient examined and no changes noted. Date Seen by Provider: Apr 27, 2022 Time Seen by Provider: 10:38 Date H&P Reviewed: Apr 27, 2022 Time H&P Reviewed: 07:11 Pre-Operative Diagnosis: right rotator cuff tear FLACA PIRES MD Apr 27, 2022 10:48
--- NOTE | 2022-04-27 10:50 | Progress Note-Post Operative ---
Post-Operative Progess Note Surgeon (s)/Artificial Inseminator (s) Surgeon FLACA PIRES MD Artificial Inseminator: Ryan Schafer Pre-Operative Diagnosis right rotator cuff tear Post-Operative Diagnosis right rotator cuff and SLAp tears Procedure & Operative Findings Date of Procedure 04/27/22 Procedure Performed/Findings right shoulder arthroscopic acromioplasty, biceps tenotomy and open rotator cuff repair Anesthesia Type GETA plus interscalene block Estimated Blood Loss Estimated blood loss (mL): minimal Specimens/Packing Specimens Removed none Packing: none FLACA PIRES MD Apr 27, 2022 10:50
[2022-04-27] MEDS ORDERED: proPOfol 200 MG/20 ML (DIPRIVAN) VIAL IV ONE (10:53)
[2022-04-27] MEDS ORDERED: ONDANSETRON 4 MG/2 ML (SDV) Z0FRAN ONE (10:53)
[2022-04-27] MEDS ORDERED: BUPIVACAINE 0.25% 10 ML (SENSORCAINE) VIAL ONE (10:53)
[2022-04-27] MEDS ORDERED: fentaNYL INJ 100 MCG/2 ML AMP ONE (10:53)
[2022-04-27] MEDS ORDERED: ROCURONIUM 50 MG/5 ML (ZEMURON) VIAL IV ONE (10:53)
[2022-04-27] MEDS ORDERED: LIDOCAINE PF 2% 5 ML (XYLOCAINE) VIAL ONE (10:53)
[2022-04-27] MEDS ORDERED: PHENYLEPHRINE 100 MCG/ML 10 ML (ANESTHESIA) SYR ONE (11:54)
[2022-04-27] MEDS ORDERED: SEVOFLURANE (ULTANE) 15 ML INHAL SOLN ONE (12:03)
[2022-04-27] MEDS ORDERED: PROMETHAZINE INJ 25 MG/ML (PHENERGAN) AMP IVP ONE (12:30)
[2022-04-27] MEDS ORDERED: morphine INJ 10 MG/ML 1ML (SYR OR VIAL) IVP ONE (12:30)
[2022-04-27] MEDS ORDERED: fentaNYL INJ 100 MCG/2 ML AMP IVP ONE (12:30)
[2022-04-27] MEDS ORDERED: ONDANSETRON 4 MG/2 ML (SDV) Z0FRAN IVP PRN (12:30)
[2022-04-27] MEDS ORDERED: MEPERIDINE (DEMEROL) INJ 50 MG/ML IVP ONE (12:30)
--- NOTE | 2022-04-27 15:29 | Anesthesia-General Post-Op ---
General Patient Condition Mental Status/LOC: Same as Preop Cardiovascular: Satisfactory Nausea/Vomiting: Absent Respiratory: Satisfactory Pain: Controlled Complications: Absent Post Op Complications Complications None Follow Up Care/Instructions Patient Instructions None needed. Anesthesia/Patient Condition Patient Condition Patient is doing well, no complaints, stable vital signs, no apparent adverse anesthesia problems. No complications reported per nursing. DARWIN SUGGS CRNA Apr 27, 2022 15:28
--- NOTE | 2022-04-27 18:35 | OPERATIVE REPORT ---
DATE OF SERVICE: 04/27/2022 PREOPERATIVE DIAGNOSES: 1. Right rotator cuff tear. 2. Right shoulder SLAP tear. 3. Acute rotator cuff tear, right shoulder. POSTOPERATIVE DIAGNOSES: 1. Right rotator cuff tear. 2. Right shoulder SLAP tear. 3. Acute rotator cuff tear, right shoulder. PROCEDURES PERFORMED: 1. Right shoulder open rotator cuff repair. 2. Right shoulder arthroscopic biceps tenotomy. 3. Right shoulder arthroscopic acromioplasty. SURGEON: Josiah Tavares MD. MULTIPLE RESAW OPERATOR: Ryan Schafer, who assisted throughout the procedure and closed the incisions. ANESTHESIA: General endotracheal plus interscalene nerve block by Marky Diggs CRNA. ESTIMATED BLOOD LOSS: Minimal. DRAINS: None. COMPLICATIONS: None. POSTOPERATIVE PLAN: Sling wear and passive range of motion for 4 weeks. The patient was transferred to the recovery room awake and stable condition. STATEMENT OF MEDICAL NECESSITY: The patient is a 67-year-old right hand dominant gentleman, who injured his right shoulder when he was throwing a chain. He had immediate pain. Ultimately, a CT arthrogram was obtained, which revealed a full-thickness supraspinatus tear. Due to functional impairment and interference with activities of daily living, the patient elected to proceed with surgical intervention. Examination under anesthesia revealed forward elevation of 170 degrees, external rotation of 85 degrees, and internal rotation of 70 degrees. Arthroscopic findings demonstrated a full-thickness supraspinatus tear, which was retracted approximately 3 cm x 3 cm. There was a type 2 SLAP tear. The glenoid and humeral head demonstrated central grade II chondral softening with no unstable chondral flaps in a 10 x 10 area. The remaining labrum was intact. Subacromial space demonstrated dense bursitis with slope in the anterolateral acromion DESCRIPTION OF PROCEDURE: After the risks and benefits of the procedure were discussed and questions were answered, an informed consent was signed and placed on chart, the operative site was confirmed in the preoperative holding area initialed by the surgeon. The patient was then transferred to the operating room and after adequate levels of general endotracheal anesthetic were obtained, a timeout was called, confirming the operative site. Examination under anesthesia was performed with the above findings noted. The right shoulder and upper extremity were then prepped and draped in the usual sterile fashion. The shoulder joint was injected with 20 mL of fluid as was the subacromial space. Standard posterior portal was placed under direct visualization. Anterior portal was created in interval between biceps, subscapularis and glenoid. The biceps anchor was released, the stump was debrided with a shaver. The scope was then redirected into the subacromial space. Lateral portal was created and a bursectomy was performed and the acromion was planed to a flat type 1 acromion. The lateral portal was then extended. The deltoid was split in line with its fibers leaving it attached to the acromion. The rotator cuff tear was mobilized and two corkscrew type anchors were placed and a modified Davon-Alverto repair was performed with excellent repair obtained. The tissue quality was good and this brought the rotator cuff to its attachment site just off the articular surface and added bleeding bony bed. The wound was then copiously irrigated. The deltoid was repaired in a [id number] fashion using #2 FiberWire in [id number] interrupted fashion. The wound was further irrigated. A 3-0 Vicryl was used to reapproximate the subcutaneous tissue. Skin was closed with 4-0 nylon in a running alternating horizontal mattress fashion. Incision was infiltrated with plain Marcaine. Shoulder joint was injected with Duramorph. A soft dressing was applied and a sling and the patient was transferred to the recovery room awake and in stable condition. Job ID: [id number] DocumentID: [id number] Dictated Date: 04/27/2022 12:09:18 Network Cabler Date: 04/27/2022 18:33:50 Dictated By: JOSIAH TAVARES MD
== END 2022-04-27 14:20 ==
LOC: SDC 07:22
PROVIDERS: ATTEND Orthopaedic Surgery
DX: S46.011A Strain of muscle(s) and tendon(s) of the rotator cuff of right shoulder, initial encounter (principal); S43.431A Superior glenoid labrum lesion of right shoulder, initial encounter; Z87.891 Personal history of nicotine dependence
CPT/HCPCS: 23410; 29828; 87081; C1713

== ENCOUNTER → 2023-04-04 | Outpatient (CLI) | payer MEDICARE, OTHER | LOC: CARD 08:34 | PROVIDERS: ATTEND Internal Medicine Cardiovascular Disease | DX: I08.0 Rheumatic disorders of both mitral and aortic valves (principal); I50.22 Chronic systolic (congestive) heart failure | CPT/HCPCS: 93306 ==